=== PATIENT | female | born 1940 | race Caucasian/White ===

== ENCOUNTER → 2017-04-25 | Outpatient (CLI) | payer OTHER ==
[~2017-04-25] MED LIST: ACIDOPHILUS LA1 EAC1 PO; ADVAIR 100/501 DISK IH; ALDACTAZIDE1 TABLET PO; Afrin,Genasal Decon, NS; Arava PO; CELEBREX200 MG PO; CELECOXIB200 MG PO; CLORAZEPATE DIP15 MG PO; Coumadin,Jantoven PO; DURAGESIC100 MICROG TD; ENDOCET 5-3251 EACH PO; FIBER LAXATIVE625 M1 PO; Feosol PO; LABETALOL HCL200 MG PO; LEFLUNOMIDE10 MG PO; LIDOCAINE700 MG TD; LISINOPRIL20 MG PO; LYRICA150 MG PO; LYRICA75 MG PO; OXYCONTIN10 MG PO; OXYCONTIN30 MG PO; PRAVACHOL40 MG PO; PROAIR HFA8.5 GM IH; Phenergan PO; SENOKOT S,PE1 TABLET PO; SINGULAIR10 MG PO; SPIRIVA RESPIMAT4 GM IH; Singulair PO; TRANXENE T PO; VITAMIN D5000 UNIT PO; Vibramycin, Doryx PO; Vitamin B Complex PO; Vitamin B-12 PO; Vitamin D, Drisdol PO; Zestril,Prinivil PO
== END | disposition home or self-care (01) ==
LOC: MRI 14:07 → RAD 14:45
DX: M43.16 Spondylolisthesis, lumbar region (principal); M48.061 Spinal stenosis, lumbar region without neurogenic claudication; M51.26 Other intervertebral disc displacement, lumbar region; Z98.1 Arthrodesis status; R93.7 Abnormal findings on diagnostic imaging of other parts of musculoskeletal system
CPT/HCPCS: 72148

== ENCOUNTER 2017-05-19 10:51 | Inpatient (IN) | payer OTHER ==
[~2017-05-19] VITALS: Ht 154.9 cm; Wt 100.3 kg
[2017-05-19 11:18] LABS: MCH 29.3 PG (29.0-34.0); MCHC 31.8 G/DL (30.0-36.0); MCV 92.4 FL (83-99); MEAN PLAT.VOLUME 9.9 uM^3 (9.5-12.4); PLATELET COUNT 140 K/uL (156-360); RBC DIS.WIDTH-CV 16.2 % (11.8-14.6); RBC DIS.WIDTH-SD 54.6 % (39-53); RED BLOOD COUNT 3.68 M/uL (3.80-5.20); WHITE BLOOD COUNT 4.6 K/uL (4.1-10.2)
[2017-05-19 11:21] LABS: CHLORIDE 105 mEq/L (99-109); POTASSIUM 4.3 mEq/L (3.7-5.4); SODIUM 138 mEq/L (136-147)
[2017-05-19 11:22] LABS: GLUCOSE 125 mg/dL (70-99)
[2017-05-19 11:22] LABS: INTER. NORMALIZED RATIO 1.5; PROTHROMBIN TIME 16.8 SEC (10.2-12.9)
[2017-05-19 11:24] LABS: ANION GAP 9 MEQ/L (2-14)
[2017-05-19 11:26] LABS: GFR ESTIMATE (CALCULATED) > 59 mL/min/
[2017-05-19 11:27] LABS: UREA NITROGEN (BUN) 13 mg/dL (9-23)
[2017-05-19] MEDS ORDERED: SENNA PLUS TAB1 EACH PO (14:49)
[2017-05-19] MEDS ORDERED: MIRALAX17 GM PO (14:50)
[2017-05-19] MEDS ORDERED: PROVENTIL HFA6.7 GM IH (14:51)
[2017-05-19] MEDS ORDERED: VITAMIN C500 M6 PO (14:52)
[2017-05-19] MEDS ORDERED: WELLBUTRIN SR150 MG PO (14:52)
[2017-05-19] MEDS ORDERED: ELIQUIS5 MG PO (14:52)
[2017-05-19] MEDS ORDERED: FERROUS SULFAT325 MG PO (14:53)
[2017-05-19] MEDS ORDERED: VITAMIN D31000 UNIT PO (14:53)
[2017-05-19] MEDS ORDERED: FENTANYL1 EAC5 TD (15:33)
[2017-05-19] MEDS ORDERED: OXYBUTYNIN CHLO10 MG PO (15:33)
[2017-05-19] MEDS ORDERED: LORATADINE10 M2 PO (15:34)
[2017-05-19] MEDS ORDERED: ALLERGY RELIE15.8 ML BOTH NARES (15:35)
[2017-05-19] MEDS ORDERED: MELATONIN3 MG PO (15:36)
[2017-05-19] MEDS ORDERED: FLORASTOR250 MG PO (15:36)
[2017-05-19] MEDS ORDERED: DICYCLOMINE HCL10 MG PO (15:37)
[2017-05-19] MEDS ORDERED: TUMS500 MG PO (15:38)
[2017-05-19] MEDS ORDERED: OXYCODONE-APAP1 EACH PO (15:39)
[2017-05-19] MEDS ORDERED: ACETAMINOPHEN325 M1 PO (15:40)
[2017-05-19 16:09] LABS: EOSINOPHIL (%) 4.4 % (0-5); EOSINOPHIL COUNT 0.2 K/uL (0-0.3); HEMATOCRIT 28.6 % (36.0-46.0); IMMATURE GRANULOCYTE (%) 2.5 % (0.0-0.7); IMMATURE GRANULOCYTE COUNT 0.1 K/uL; LYMPHOCYTE COUNT 1.1 K/uL (1.0-2.8); MCH 29.3 PG (29.0-34.0); MCHC 31.8 G/DL (30.0-36.0); MEAN PLAT.VOLUME 8.9 uM^3 (9.5-12.4); MONOCYTE (%) 7.7 % (3-12); MONOCYTE COUNT 0.3 K/uL (0-0.8); NEUTROPHIL (%) 53.7 % (45-76); PLATELET COUNT 120 K/uL (156-360); RBC DIS.WIDTH-CV 16.1 % (11.8-14.6); RBC DIS.WIDTH-SD 54.2 % (39-53); RED BLOOD COUNT 3.11 M/uL (3.80-5.20); WHITE BLOOD COUNT 3.6 K/uL (4.1-10.2)
[2017-05-19 17:17] VITALS: BP 143/64
[2017-05-19 19:30] VITALS: BP 136/81
[2017-05-19 19:55] LABS: EOSINOPHIL COUNT 0.2 K/uL (0-0.3); HEMATOCRIT 29.3 % (36.0-46.0); IMMATURE GRANULOCYTE (%) 2.5 % (0.0-0.7); IMMATURE GRANULOCYTE COUNT 0.1 K/uL; INSTRUMENT ABS NEUTROPHIL CT 1.9 K/uL; LYMPHOCYTE COUNT 1.2 K/uL (1.0-2.8); MCH 29.6 PG (29.0-34.0); MCHC 31.7 G/DL (30.0-36.0); MCV 93.3 FL (83-99); MEAN PLAT.VOLUME 9.9 uM^3 (9.5-12.4); MONOCYTE (%) 7.1 % (3-12); MONOCYTE COUNT 0.3 K/uL (0-0.8); NEUTROPHIL (%) 50.4 % (45-76); NEUTROPHIL COUNT 1.9 K/uL (1.8-6.4); PLATELET COUNT 134 K/uL (156-360); RBC DIS.WIDTH-CV 16.3 % (11.8-14.6); RBC DIS.WIDTH-SD 55.5 % (39-53); RED BLOOD COUNT 3.14 M/uL (3.80-5.20); WHITE BLOOD COUNT 3.7 K/uL (4.1-10.2)
[2017-05-19 23:45] VITALS: BP 141/78
[2017-05-20 00:26] LABS: EOSINOPHIL (%) 5.3 % (0-5); EOSINOPHIL COUNT 0.2 K/uL (0-0.3); HEMATOCRIT 28.4 % (36.0-46.0); IMMATURE GRANULOCYTE (%) 2.5 % (0.0-0.7); IMMATURE GRANULOCYTE COUNT 0.1 K/uL; INSTRUMENT ABS NEUTROPHIL CT 1.9 K/uL; LYMPHOCYTE COUNT 1.2 K/uL (1.0-2.8); MCHC 31.3 G/DL (30.0-36.0); MCV 92.5 FL (83-99); MEAN PLAT.VOLUME 9.8 uM^3 (9.5-12.4); MONOCYTE (%) 7.5 % (3-12); MONOCYTE COUNT 0.3 K/uL (0-0.8); NEUTROPHIL (%) 51.7 % (45-76); NEUTROPHIL COUNT 1.9 K/uL (1.8-6.4); PLATELET COUNT 120 K/uL (156-360); RBC DIS.WIDTH-CV 16.3 % (11.8-14.6); RBC DIS.WIDTH-SD 54.5 % (39-53); RED BLOOD COUNT 3.07 M/uL (3.80-5.20); WHITE BLOOD COUNT 3.6 K/uL (4.1-10.2)
[2017-05-20 03:56] VITALS: BP 145/68
[2017-05-20 06:19] LABS: EOSINOPHIL (%) 5.3 % (0-5); EOSINOPHIL COUNT 0.2 K/uL (0-0.3); HEMATOCRIT 28.1 % (36.0-46.0); IMMATURE GRANULOCYTE (%) 1.3 % (0.0-0.7); IMMATURE GRANULOCYTE COUNT 0.1 K/uL; INSTRUMENT ABS NEUTROPHIL CT 2.2 K/uL; LYMPHOCYTE COUNT 1.1 K/uL (1.0-2.8); MCH 29.1 PG (29.0-34.0); MEAN PLAT.VOLUME 9.6 uM^3 (9.5-12.4); MONOCYTE (%) 7.4 % (3-12); MONOCYTE COUNT 0.3 K/uL (0-0.8); NEUTROPHIL COUNT 2.2 K/uL (1.8-6.4); PLATELET COUNT 124 K/uL (156-360); RBC DIS.WIDTH-CV 16.6 % (11.8-14.6); RBC DIS.WIDTH-SD 56.3 % (39-53); RED BLOOD COUNT 2.99 M/uL (3.80-5.20); WHITE BLOOD COUNT 3.8 K/uL (4.1-10.2)
[2017-05-20 06:29] LABS: INTER. NORMALIZED RATIO 1.2; PROTHROMBIN TIME 13.3 SEC (10.2-12.9)
[2017-05-20 06:32] LABS: PTT 30.1 SEC (25-37)
[2017-05-20 06:45] LABS: ALKALINE PHOSPHATASE 74 IU/L (3-129); ANION GAP 6 MEQ/L (2-14); CHLORIDE 109 MEQ/L (99-109); GFR ESTIMATE (CALCULATED) > 59 mL/min/; SAMPLE HEMOLYSIS CHECK 0; SAMPLE ICTERIC CHECK 0; SAMPLE LIPEMIA CHECK 0; SODIUM 144 MEQ/L (136-147); TOTAL BILIRUBIN 0.3 MG/DL (0.0-1.0); UREA NITROGEN (BUN) 9 mg/dL (9-23)
[2017-05-20 06:49] LABS: GLUCOSE 90 mg/dL (70-99)
[2017-05-20 08:23] VITALS: BP 136/76
[2017-05-20 11:47] VITALS: BP 105/58
[2017-05-20 12:04] LABS: EOSINOPHIL (%) 3.9 % (0-5); EOSINOPHIL COUNT 0.2 K/uL (0-0.3); HEMATOCRIT 25.8 % (36.0-46.0); IMMATURE GRANULOCYTE (%) 1.7 % (0.0-0.7); IMMATURE GRANULOCYTE COUNT 0.1 K/uL; INSTRUMENT ABS NEUTROPHIL CT 2.6 K/uL; MCH 28.9 PG (29.0-34.0); MCV 93.1 FL (83-99); MEAN PLAT.VOLUME 9.9 uM^3 (9.5-12.4); MONOCYTE (%) 6.6 % (3-12); MONOCYTE COUNT 0.3 K/uL (0-0.8); NEUTROPHIL (%) 64.3 % (45-76); NEUTROPHIL COUNT 2.6 K/uL (1.8-6.4); PLATELET COUNT 118 K/uL (156-360); RBC DIS.WIDTH-CV 16.3 % (11.8-14.6); RBC DIS.WIDTH-SD 55.8 % (39-53); RED BLOOD COUNT 2.77 M/uL (3.80-5.20); WHITE BLOOD COUNT 4.1 K/uL (4.1-10.2)
[2017-05-20 16:02] LABS: EOSINOPHIL (%) 4.9 % (0-5); EOSINOPHIL COUNT 0.2 K/uL (0-0.3); HEMATOCRIT 29.5 % (36.0-46.0); IMMATURE GRANULOCYTE (%) 1.5 % (0.0-0.7); IMMATURE GRANULOCYTE COUNT 0.1 K/uL; INSTRUMENT ABS NEUTROPHIL CT 2.4 K/uL; LYMPHOCYTE COUNT 1.1 K/uL (1.0-2.8); MCH 28.6 PG (29.0-34.0); MCHC 30.5 G/DL (30.0-36.0); MCV 93.7 FL (83-99); MEAN PLAT.VOLUME 9.4 uM^3 (9.5-12.4); MONOCYTE (%) 7.8 % (3-12); MONOCYTE COUNT 0.3 K/uL (0-0.8); NEUTROPHIL (%) 59.2 % (45-76); NEUTROPHIL COUNT 2.4 K/uL (1.8-6.4); PLATELET COUNT 130 K/uL (156-360); RBC DIS.WIDTH-CV 16.5 % (11.8-14.6); RBC DIS.WIDTH-SD 55.8 % (39-53); RED BLOOD COUNT 3.15 M/uL (3.80-5.20); WHITE BLOOD COUNT 4.1 K/uL (4.1-10.2)
[2017-05-20 20:13] LABS: EOSINOPHIL COUNT 0.2 K/uL (0-0.3); HEMATOCRIT 28.1 % (36.0-46.0); IMMATURE GRANULOCYTE (%) 1.9 % (0.0-0.7); IMMATURE GRANULOCYTE COUNT 0.1 K/uL; INSTRUMENT ABS NEUTROPHIL CT 2.7 K/uL; MCH 28.9 PG (29.0-34.0); MCV 93.4 FL (83-99); MEAN PLAT.VOLUME 9.1 uM^3 (9.5-12.4); MONOCYTE (%) 7.3 % (3-12); MONOCYTE COUNT 0.3 K/uL (0-0.8); NEUTROPHIL COUNT 2.7 K/uL (1.8-6.4); PLATELET COUNT 130 K/uL (156-360); RBC DIS.WIDTH-CV 16.5 % (11.8-14.6); RBC DIS.WIDTH-SD 55.8 % (39-53); RED BLOOD COUNT 3.01 M/uL (3.80-5.20); WHITE BLOOD COUNT 4.2 K/uL (4.1-10.2)
[2017-05-20 20:20] VITALS: BP 139/74
[2017-05-20 23:18] VITALS: BP 141/73
[2017-05-21 05:11] VITALS: BP 161/85
[2017-05-21 07:07] LABS: HEMATOCRIT 28.7 % (36.0-46.0); MCH 28.8 PG (29.0-34.0); MCHC 30.7 G/DL (30.0-36.0); MCV 93.8 FL (83-99); PLATELET COUNT 118 K/uL (156-360); RBC DIS.WIDTH-CV 16.3 % (11.8-14.6); RBC DIS.WIDTH-SD 55.7 % (39-53); RED BLOOD COUNT 3.06 M/uL (3.80-5.20); WHITE BLOOD COUNT 3.5 K/uL (4.1-10.2)
[2017-05-21 07:19] VITALS: BP 164/76
[2017-05-21 07:20] LABS: PROTHROMBIN TIME 11.8 SEC (10.2-12.9)
[2017-05-21 07:30] LABS: ANION GAP 4 MEQ/L (2-14); CHLORIDE 108 MEQ/L (99-109); GFR ESTIMATE (CALCULATED) > 59 mL/min/; GLUCOSE 104 mg/dL (70-99); POTASSIUM 3.6 MEQ/L (3.7-5.4); SAMPLE HEMOLYSIS CHECK 0; SAMPLE ICTERIC CHECK 0; SAMPLE LIPEMIA CHECK 0; SODIUM 144 MEQ/L (136-147); UREA NITROGEN (BUN) 5 mg/dL (9-23)
[2017-05-21 11:40] VITALS: BP 155/73
[2017-05-21 20:41] VITALS: BP 170/84
[2017-05-22 00:15] VITALS: BP 130/61
[2017-05-22 04:34] VITALS: BP 151/67
[2017-05-22 06:32] LABS: EOSINOPHIL (%) 5.3 % (0-5); EOSINOPHIL COUNT 0.2 K/uL (0-0.3); HEMATOCRIT 29.6 % (36.0-46.0); IMMATURE GRANULOCYTE (%) 2.5 % (0.0-0.7); IMMATURE GRANULOCYTE COUNT 0.1 K/uL; INSTRUMENT ABS NEUTROPHIL CT 2.7 K/uL; LYMPHOCYTE COUNT 1.1 K/uL (1.0-2.8); MCH 29.1 PG (29.0-34.0); MCHC 30.7 G/DL (30.0-36.0); MCV 94.6 FL (83-99); MONOCYTE COUNT 0.3 K/uL (0-0.8); NEUTROPHIL (%) 61.6 % (45-76); NEUTROPHIL COUNT 2.7 K/uL (1.8-6.4); RBC DIS.WIDTH-CV 16.8 % (11.8-14.6); RBC DIS.WIDTH-SD 56.8 % (39-53); RED BLOOD COUNT 3.13 M/uL (3.80-5.20); WHITE BLOOD COUNT 4.4 K/uL (4.1-10.2)
[2017-05-22 06:43] LABS: ANION GAP 8 MEQ/L (2-14); CHLORIDE 106 MEQ/L (99-109); GFR ESTIMATE (CALCULATED) > 59 mL/min/; GLUCOSE 136 mg/dL (70-99); POTASSIUM 4.2 MEQ/L (3.7-5.4); SAMPLE HEMOLYSIS CHECK 0; SAMPLE ICTERIC CHECK 0; SAMPLE LIPEMIA CHECK 0; SODIUM 141 MEQ/L (136-147); UREA NITROGEN (BUN) 7 mg/dL (9-23)
[2017-05-22 08:00] LABS: MEAN PLAT.VOLUME 10.5 uM^3 (9.5-12.4); PLAT.SUFFICIENCY DECREASED; PLATELET COUNT 129 K/uL (156-360)
[2017-05-22 08:15] VITALS: BP 142/72
[2017-05-22 08:16] VITALS: BP 170/81
[2017-05-22] MEDS ORDERED: Preparation H PR (11:47)
[2017-05-22 12:15] VITALS: BP 159/75
[2017-05-22 16:32] VITALS: BP 141/69
== END 2017-05-22 18:18 | DRG 378 ==
LOC: EME 10:51 → EDOF 14:09 → 3EAST 14:09 → ENRESERV 14:13 → 3EAST 16:35
PROVIDERS: Internal Medicine; Internal Medicine Gastroenterology
PROC: 0DJD8ZZ Inspection of Lower Intestinal Tract, Via Natural or Artificial Opening Endoscopic (ICD-10-PCS; principal; 2017-05-21)
DX: K57.31 Diverticulosis of large intestine without perforation or abscess with bleeding (principal); D61.818 Other pancytopenia; I48.0 Paroxysmal atrial fibrillation; E66.01 Morbid (severe) obesity due to excess calories; Z86.718 Personal history of other venous thrombosis and embolism; Z86.711 Personal history of pulmonary embolism; Z99.81 Dependence on supplemental oxygen; Z79.01 Long term (current) use of anticoagulants; J44.9 Chronic obstructive pulmonary disease, unspecified; K64.8 Other hemorrhoids; E78.5 Hyperlipidemia, unspecified; G89.29 Other chronic pain; I10 Essential (primary) hypertension; M06.9 Rheumatoid arthritis, unspecified; Z68.41 Body mass index [BMI] 40.0-44.9, adult; Z86.010 Personal history of colon polyps; Z96.649 Presence of unspecified artificial hip joint; Z96.659 Presence of unspecified artificial knee joint; D68.32 Hemorrhagic disorder due to extrinsic circulating anticoagulants; T45.515A Adverse effect of anticoagulants, initial encounter; F17.210 Nicotine dependence, cigarettes, uncomplicated; Z74.01 Bed confinement status
CPT/HCPCS: 74177; 80048; 80053; 80069; 85025; 85025 91; 85027; 85610; 85730; 86850; 86900; 86901; 93005; 93970; 94640; 94640 76; 94799; 99202; 99281; 99285; C9113; J7040